=== PATIENT | male | born 2000 | race Two or more races ===

== ENCOUNTER 2021-05-04 16:52 | Emergency (ER) | payer OTHER, MEDICAID ==
[~2021-05-04] VITALS: Ht 180.3 cm; Wt 81.6 kg
[2021-05-04 17:38] VITALS: BP_SYST 152
--- NOTE | 2021-05-04 17:42 | NUR ---
Patient to ER bed 6 to gown for evaluation. Side rails up. Report given to Terrence LESLIE.
--- NOTE | 2021-05-04 17:43 | NUR ---
ER at bedside examining patient.
[2021-05-04] MEDS ORDERED: DIPH-TET-PERTUS Vaccine 0.5 ML VIAL (ADACEL) I.M. ONE (17:45)
[2021-05-04] MEDS ORDERED: HYDROcodone/ACETAMIN 10-325 MG TAB PO ONE (17:45)
[2021-05-04] MEDS ORDERED: IBUPROFEN 800 MG TABLET PO ONE (17:45)
[2021-05-04] MEDS ORDERED: PENICILLIN V POTASSIUM 250 MG/5 ML PO SCH (17:45)
--- NOTE | 2021-05-04 18:00 | NUR ---
CALM, ALERT, RESP UNLABORED, SKIN WARM AND DRY. MULTIPLE ABRASIONS, BLEEDING CONTROLLED.
[2021-05-04] MEDS ORDERED: AMOX500C2 PO (18:22)
[2021-05-04] MEDS ORDERED: IBUP-1971 PO (18:22)
[2021-05-04] MEDS ORDERED: AMOXICILLIN/CLAVULANATE POTASSIUM 500 MG TABLET ONE (18:34)
--- NOTE | 2021-05-04 18:40 | NUR ---
PAIN DECREASED S/P MEDICATIONS, NO DISTRESS
[2021-05-04 18:51] VITALS: BP_SYST 142
--- NOTE | 2021-05-04 18:53 | NUR ---
Patient given written and verbal discharge instructions and verbalizes understanding. ER MD discussed with patient the results and treatment provided. Patient in stable condition. ID arm band removed. Rx of NORCO, IBU given. Patient educated on pain management and to follow up with PMD. Pain Scale 0/140 Opportunity for questions provided and answered. Medication side effect fact sheet provided.
[2021-05-04] MEDS ORDERED: AMOXICILLIN/CLAVULANATE POTASSIUM 500 MG TABLET PO ONE (19:00)
== END 2021-05-04 18:51 | disposition home or self-care (01) ==
LOC: SED 16:52
DX: S01.511A Laceration without foreign body of lip, initial encounter (principal); S93.401A Sprain of unspecified ligament of right ankle, initial encounter; S20.211A Contusion of right front wall of thorax, initial encounter; Z79.899 Other long term (current) drug therapy; V18.4XXA Pedal cycle driver injured in noncollision transport accident in traffic accident, initial encounter; Y93.89 Activity, other specified; Y92.89 Other specified places as the place of occurrence of the external cause; Y99.8 Other external cause status
CPT/HCPCS: 71045; 90715; 99284